=== PATIENT | male | born 1970 | race Caucasian/White ===

== ENCOUNTER 2016-12-29 01:55 | Emergency (ER) | payer SELFPAY ==
[~2016-12-29] VITALS: Ht 160 cm; Wt 67.8 kg
[~2016-12-29 01:55] MED LIST: COL100 PO; NOR10T PO; PRI20 PO
[2016-12-29 03:10] VITALS: BP 120/80
== END 2016-12-29 03:10 | disposition home or self-care (01) ==
LOC: ED 01:55
DX: S76.811A Strain of other specified muscles, fascia and tendons at thigh level, right thigh, initial encounter (principal); X58.XXXA Exposure to other specified factors, initial encounter; Y93.89 Activity, other specified; Y99.8 Other external cause status; Y92.89 Other specified places as the place of occurrence of the external cause